=== PATIENT | male | born 2005 | race Two or more races ===

== ENCOUNTER → 2024-02-26 09:21 | Outpatient (BNVA) | payer OTHER, SELFPAY | PROVIDERS: Visit Provider Physician Assistant Medical | DX: S90.31XA Contusion of right foot, initial encounter (principal); S93.691A Other sprain of right foot, initial encounter; V09.20XA Pedestrian injured in traffic accident involving unspecified motor vehicles, initial encounter | CPT/HCPCS: 73610; 73630; 99203 ==

== ENCOUNTER → 2024-02-28 12:04 | Outpatient (BNVA) | payer OTHER, SELFPAY | PROVIDERS: Visit Provider Registered Nurse | DX: S90.31XA Contusion of right foot, initial encounter (principal); S90.01XA Contusion of right ankle, initial encounter; V09.20XA Pedestrian injured in traffic accident involving unspecified motor vehicles, initial encounter | CPT/HCPCS: 99213 ==

== ENCOUNTER → 2024-03-04 08:33 | Outpatient (BNVA) | payer OTHER, SELFPAY | PROVIDERS: Visit Provider Internal Medicine | DX: S90.31XA Contusion of right foot, initial encounter (principal); S93.691A Other sprain of right foot, initial encounter; V09.20XA Pedestrian injured in traffic accident involving unspecified motor vehicles, initial encounter | CPT/HCPCS: 99213 ==

== ENCOUNTER → 2024-03-18 08:06 | Outpatient (BNVA) | payer OTHER, SELFPAY | PROVIDERS: Visit Provider Internal Medicine | DX: S90.01XD Contusion of right ankle, subsequent encounter (principal); S93.691D Other sprain of right foot, subsequent encounter; V09.20XD Pedestrian injured in traffic accident involving unspecified motor vehicles, subsequent encounter | CPT/HCPCS: 99213 ==